=== PATIENT | male | born 1980 | race Caucasian/White ===

== ENCOUNTER → 2016-06-17 | Outpatient (CLI) | payer BC ==
--- NOTE | 2016-06-17 11:34 | CT ---
EXAMINATION TYPE: CT abdomen pelvis wo con DATE OF EXAM: 06/17/2016 11:13 AM COMPARISON: NONE INDICATION: LLQ pain for 3 days DLP: 897 mGycm, Automated exposure control for dose reduction was used. CONTRAST: 0 mL of Omnipaque 300. Study performed with Oral Contrast TECHNIQUE: Axial images were obtained from above the diaphragm to the pubic rami in the axial plane a t 5 mm thick sections. Reconstructed images are reviewed on the computer in the coronal plane. FINDINGS: Limited CT sections are obtained the lung bases. The lung bases are clear. CT ABDOMEN: Liver: Normal Spleen: Normal Pancreas: Normal Adrenal glands: The adrenal glands are normal. Gallbladder: Normal Kidneys: No masses are evident. No hydronephrosis is present. No cysts are present. No renal stone s are identified. Aorta: Normal Inferior vena cava: Normal. CT PELVIS: Loops of bowel within the abdomen and pelvis are normal. There are loops of bowel which are incom pletely distended or lack oral contrast limiting their evaluation. The descending colon sigmoid colon junction has mild thickening and adjacent inflammatory changes. This could be related to acute diver ticulitis. A single diverticulum is in this region. Colitis could be considered. Neoplasm is consider ed less likely but within the differential. A few diverticular changes are within the sigmoid colon. Appendix: Normal as visualized. Urinary bladder: Normal. Genitourinary structures: Prostate is unremarkable. Osseous structures: No suspicious lytic or sclerotic lesions. Sclerotic bone island is in the right m edial iliac wing. IMPRESSIONS: 1. Colitis versus acute diverticulitis sigmoid colon descending colon junction. Neoplasm is consider ed less likely. Follow-up is recommended.
== END | disposition home or self-care (01) ==
LOC: RADCTMAIN 09:34
PROVIDERS: ATTEND Physician Assistant
DX: R10.9 Unspecified abdominal pain (principal)
CPT/HCPCS: 74176

== ENCOUNTER 2016-11-16 11:36 | Day surgery (SDC) | payer BC ==
[2016-11-15 11:34] VITALS: BMI 25.0
[~2016-11-16 11:36] MED LIST: LACTATED RINGERS 1,000 ML IV SCH
[2016-11-16 12:39] VITALS: TEMP 97.6
[2016-11-16] MEDS ORDERED: LIDOCAINE 1% 20 ML VIAL (10MG/ML) FOR IV START INTRADERMA ONE (12:40)
[2016-11-16] MEDS ORDERED: PROPOFOL 10 MG/ML 20 ML VIAL IV ONE (13:05)
--- NOTE | 2016-11-16 13:21 | P.PCN ---
Date of Procedure: 11/16/16 Procedure(s) Performed: BRIEF HISTORY: Patient is a 36-year-old pleasant white male, scheduled for an elective colonoscopy as a part of evaluation of prior history of colon polyps. His last coloscopy was in 2010 and was noted to have a tubular villous adenoma in the sigmoid colon. Father was diagnosed with colon cancer at age 64. PROCEDURE PERFORMED: Colonoscopy with biopsy and snare polypectomy. PREOPERATIVE DIAGNOSIS: Screening for colon cancer/family history of colon cancer and history of colon polyps. IV sedation per Anesthesia. PROCEDURE: After informed consent was obtained, the patient, was brought into the endoscopy unit. IV sedation was administered by Anesthesia under continuous monitoring. Digital rectal examination was normal. Initially the Olympus CF- 160 flexible video colonoscope was then inserted in the rectum, gradually advanced into the cecum without any difficulty. Careful examination was performed as the scope was gradually being withdrawn. Ileocecal valve and the appendiceal orifice were visualized and appeared normal. Prep was excellent. Mucosa of the cecum, ascending colon, transverse colon appeared normal. In the descending colon there was a 1 cm polyp removed by snare polypectomy. There were patchy areas of erythema noted in the sigmoid colon and in the distal rectum was of which were biopsied. Retroflexion was performed in the rectum and no lesions were seen. The patient tolerated the procedure well. IMPRESSION: 1 cm descending colon polyp status post polypectomy Mild patchy areas of erythema noted in the sigmoid colon as well as in the distal rectum, status post biopsy RECOMMENDATIONS: Findings of this examination were discussed with the patient as well as his family. He was advised to follow with the biopsy results and have a repeat surveillance coloscopy in 3 years.
[2016-11-16 13:32] VITALS: RESP 14
[2016-11-16 13:38] VITALS: BP 111/77; PULSE 66
== END 2016-11-16 14:03 | disposition home or self-care (01) ==
LOC: ORWHC2ENDO 11:36
PROVIDERS: ATTEND Internal Medicine Gastroenterology
DX: Z12.11 Encounter for screening for malignant neoplasm of colon (principal); D12.4 Benign neoplasm of descending colon; K63.89 Other specified diseases of intestine; Z86.010 Personal history of colon polyps; Z80.0 Family history of malignant neoplasm of digestive organs; K21.9 Gastro-esophageal reflux disease without esophagitis; Z72.0 Tobacco use; Z79.899 Other long term (current) drug therapy
CPT/HCPCS: 88305; 45380; 45385; J2704

== ENCOUNTER → 2018-04-20 | Day surgery (SDC) | payer BC ==
[2018-04-18 10:08] VITALS: BMI 24.6
[~2018-04-20] MED LIST changes: +LIDOCAINE 1% 20 ML VIAL (10MG/ML) FOR IV START INTRADERMA ONE; +LIDOCAINE 1% 20 ML VIAL (10MG/ML) FOR IV START INTRADERMA PRN; +PROPOFOL 10 MG/ML 20 ML VIAL IV ONE
[2018-04-20 10:10] VITALS: RESP 16; TEMP 98
--- NOTE | 2018-04-20 11:12 | P.PCN ---
Date of Procedure: 04/20/18 Procedure(s) Performed: BRIEF HISTORY: Patient is a 36-year-old, pleasant, white male, scheduled for an upper endoscopy as a part of evaluation of epigastric pain on and off for the last 2 years duration. These episodes happens once or twice a week last all day. Has some associated abdominal bloating and epigastric discomfort. Denies any heartburn. In view of the symptoms he scheduled for an upper endoscopy to evaluate further. PROCEDURE PERFORMED: Esophagogastroduodenoscopy With the biopsy PREOPERATIVE DIAGNOSIS: Chronic epigastric pain of 2 years duration IV sedation per anesthesia. PROCEDURE: After informed consent was obtained, the patient was brought into the endoscopy unit. IV sedation was administered by Anesthesia under continuous monitoring. Initially the Olympus GIF-140 video endoscope was inserted into the mouth. Esophagus intubated without any difficulty. It was gradually advanced into the stomach and duodenum and carefully examined. The bulb and the second part of the duodenum appeared normal. The scope at this time was withdrawn to the stomach, adequately insufflated with air, and upon careful examination, mucosa of the antrum, had mild gastritis and biopsies were done from this area the body, cardia and the fundus appeared normal. The scope was then withdrawn into the esophagus. The GE junction was located at 39 cm from the incisors. The esophagus appeared normal. There were 2 superficial erosions at the GE junction consistent with LA grade a reflux esophagitis. The rest of the esophagus appeared normal and the patient tolerated the procedure well IMPRESSION: 1. Minimal antral gastritis 2. 2 superficial erosions at the GE junction consistent with LA grade A reflux esophageal RECOMMENDATIONS: The findings of this examination were discussed with the patient as well as his family. He was advised to follow with the biopsy results. He will continue with Zantac as needed and follow antireflux measures
[2018-04-20 11:22] VITALS: BP 116/77; PULSE 60
== END | disposition home or self-care (01) ==
LOC: ORWHC2ENDO 09:13
PROVIDERS: ATTEND Internal Medicine Gastroenterology
DX: K29.50 Unspecified chronic gastritis without bleeding (principal); K22.10 Ulcer of esophagus without bleeding; K21.9 Gastro-esophageal reflux disease without esophagitis; F17.210 Nicotine dependence, cigarettes, uncomplicated; Z86.010 Personal history of colon polyps; K58.9 Irritable bowel syndrome, unspecified; Z80.0 Family history of malignant neoplasm of digestive organs; Z79.899 Other long term (current) drug therapy
CPT/HCPCS: 88305; 43239; J2704

== ENCOUNTER 2023-07-06 07:44 | Day surgery (SDC) | payer BC, OTHER ==
[2023-06-30 14:45] VITALS: BMI 27.0
[2023-07-06] MEDS: LACTATED RINGERS 1,000 ML IV SCH (08:13)
[2023-07-06 08:19] VITALS: RESP 16; TEMP 97.6
--- NOTE | 2023-07-06 08:55 | P.GSHP ---
History of Present Illness H&P Date: 07/06/23 CHIEF COMPLAINT: Personal history of colon polyps and family history of colon cancer HISTORY OF PRESENT ILLNESS: The patient is a 42-year-old male who presents personal history of colon polyps and family history of colon cancer. Lower endoscopy was offered for further evaluation and management. PAST MEDICAL HISTORY: Please see list. PAST SURGICAL HISTORY: Please see list. MEDICATIONS: Please see list. ALLERGIES: Please see list. SOCIAL HISTORY: No illicit drug use FAMILY HISTORY: No reports of Crohn disease or ulcerative colitis. REVIEW OF ORGAN SYSTEMS: CONSTITUTIONAL: No reports of fevers or chills. PHYSICAL EXAM: VITAL SIGNS: Stable GENERAL: Well-developed pleasant in no acute distress. HEENT: No scleral icterus. Extraocular movements grossly intact. Moist buccal mucosa. NECK: Supple without lymphadenopathy. CHEST: Unlabored respirations. Equal bilateral excursions. CARDIOVASCULAR: Regular rate and rhythm. Distal 2+ pulses. ABDOMEN: Soft, nontender, nondistended. MUSCULOSKELETAL: No clubbing, cyanosis, or edema. ASSESSMENT: 1. Personal history of colon polyps 2. Family history of colon cancer 3. Colon screen. PLAN: 1. Recommend proceeding with a lower endoscopy Past Medical History Past Medical History: GERD/Reflux Additional Past Medical History / Comment(s): . History of Any Multi-Drug Resistant Organisms: None Reported Additional Past Surgical History / Comment(s): EGD/colonoscopy, hx polyps Past Anesthesia/Blood Transfusion Reactions: No Reported Reaction Additional Past Anesthesia/Blood Transfusion Reaction / Comment(s): no blood transfusion Past Psychological History: No Psychological Hx Reported Smoking Status: Current every day smoker Past Alcohol Use History: Rare Additional Past Alcohol Use History / Comment(s): started smoking at age 17,1 ppd Past Drug Use History: Marijuana Additional Drug Use History / Comment(s): INSTSTRUCTED TO REFRAIN FROM USE FOR AT LEAST 24 HOURS PROR TO PROCEDURE - Past Family History Mother Family Medical History: No Reported History Father Family Medical History: Cancer Additional Family Medical History / Comment(s): Stg 4 colon CA Medications and Allergies Home Medications Medication Instructions Recorded Confirmed Type No Known Home Medications 04/18/18 07/05/23 History Allergies Allergy/AdvReac Type Severity Reaction Status Date / Time No Known Allergies Allergy Verified 07/06/23 08:09 Surgical - Exam Vital Signs Temp Pulse Resp BP Pulse Ox 97.6 F 71 16 122/84 99 07/06/23 08:09 07/06/23 08:09 07/06/23 08:09 07/06/23 08:09 07/06/23 08:09
[2023-07-06] MEDS ORDERED: PROPOFOL 10 MG/ML 20 ML VIAL IV ONE (08:56)
[2023-07-06 09:53] VITALS: BP 109/76; PULSE 52
--- NOTE | 2023-07-06 10:13 | P.PCN ---
Date of Procedure: 07/06/23 Description of Procedure: PREOPERATIVE DIAGNOSIS: Personal history colon polyps Family history colon cancer, father History of blood in stools POSTOPERATIVE DIAGNOSIS: Acute diverticulitis, sigmoid colon OPERATION: Colonoscopy to the cecum, ileocecal valve and appendiceal orifice. SURGEON: Lilli Page MD. ANESTHESIA: MAC. INDICATIONS: The patient is a 42-year-old male who presents for colonoscopy screening. Past history of colon polyps. Benefits and risks were described and informed consent was obtained. DESCRIPTION OF PROCEDURE: The patient had undergone GoLytely prep prep. The patient had been brought into the operating room and laid in the left lateral decubitus position. After ad equate intravenous sedation, the rectum was examined with 2% lidocaine jelly. External hemorrhoids were encountered. The rectal tone was within normal limits. No lesions were palpated in the rectal vault. An Olympus colonoscope was advanced until the cecum, ileocecal valve and appendiceal orifice were clearly viewed. The prep was excellent. Scattered diverticulosis was encountered. Acute sigmoid diverticulitis was found without bleeding. No colonic polyps were found. Localized colitis identified the sigmoid colon. Retroflexion of the scope demonstrated grade 2 internal hemorrhoids without active bleeding or inflammation. The colon was desufflated. The patient had tolerated the procedure well. Withdrawal time was over 6 minutes. FINDINGS: Aronchick preparation quality scale 1 (1-5) Internal hemorrhoids, grade 2 External prolapsed hemorrhoids, grade 2 No arteriovenous malformations. No adenomatous polyps. Acute localized sigmoid diverticulitis without rupture, acute inflammation RECOMMENDATIONS: 1. Patient started immediately on antibiotics Augmentin 875 mg twice daily 2. Avoidance of foods that may contribute to diverticulitis advised. Plan - Discharge Summary Discharge Rx Participant: No New Discharge Prescriptions: New Amoxic-Pot Clav 875-125Mg [Augmentin Xr 875-125] 1 each PO Q12HR #20 tablet Discharge Medication List Amoxic-Pot Clav 875-125Mg [Augmentin Xr 875-125] 1 each PO Q12HR #20 tablet 07/06/23 [Rx] Follow up Appointment(s)/Referral(s): Lilli Page MD [STAFF PHYSICIAN] - 07/11/23 6:00 pm Patient Instructions/Handouts: Diverticulitis (GEN), Diverticulitis Diet (GEN) Activity/Diet/Wound Care/Special Instructions: Start antibiotic for diverticulitis Discharge Disposition: HOME SELF-CARE
== END 2023-07-06 10:12 | disposition home or self-care (01) ==
LOC: ORWHC2ENDO 07:44
PROVIDERS: ATTEND Surgery Plastic and Reconstructive Surgery
DX: Z12.11 Encounter for screening for malignant neoplasm of colon (principal); K57.30 Diverticulosis of large intestine without perforation or abscess without bleeding; K64.1 Second degree hemorrhoids; K21.9 Gastro-esophageal reflux disease without esophagitis; F17.200 Nicotine dependence, unspecified, uncomplicated; F10.90 Alcohol use, unspecified, uncomplicated; Z80.0 Family history of malignant neoplasm of digestive organs; F12.90 Cannabis use, unspecified, uncomplicated
CPT/HCPCS: 45378; J2704

== ENCOUNTER 2023-07-07 05:32 | Day surgery (SDC) | payer BC, OTHER ==
[2023-07-05 16:01] VITALS: BMI 26.9
[2023-07-07] MEDS ORDERED: ONDANSETRON 4 MG/2 ML VIAL IVP ONE (05:48)
[2023-07-07] MEDS ORDERED: LACTATED RINGERS 1,000 ML IV SCH (05:48)
[2023-07-07] MEDS: LACTATED RINGERS 1,000 ML IV ONE ×3 (06:00→08:55)
--- NOTE | 2023-07-07 06:13 | P.GSHP ---
History of Present Illness H&P Date: 07/07/23 CHIEF COMPLAINT: Inguinal hernia, right. HISTORY OF PRESENT ILLNESS: The patient is a 42-year-old male who presents with a history of swelling and pain along the right groin. He's noted increased swelling including pain of the area. Now he presents for repair of his inguinal hernia. PAST MEDICAL HISTORY: Please see list. PAST SURGICAL HISTORY: Please see list. MEDICATIONS: Please see list. ALLERGIES: Please see list. SOCIAL HISTORY: No illicit drug use FAMILY HISTORY: No reports of Crohn disease or ulcerative colitis. REVIEW OF ORGAN SYSTEMS: CONSTITUTIONAL: No reports of fevers or chills. No reports of weight loss despite prior attempts. GI: Denies any blood in stools or constipation. PHYSICAL EXAM: VITAL SIGNS: Stable GENERAL: Well-developed pleasant male in no acute distress. HEENT: No scleral icterus. Extraocular movements grossly intact. Moist buccal mucosa. NECK: Supple without lymphadenopathy. CHEST: Unlabored respirations. Equal bilateral excursions. CARDIOVASCULAR: Regular rate and rhythm. Distal 2+ pulses. ABDOMEN: Soft, nondistended. No peritoneal signs. Palpable defect of the right groin. MUSCULOSKELETAL: No clubbing, cyanosis, or edema. ASSESSMENT: 1. Inguinal hernia, right PLAN: 1. Recommend proceeding with a robotic inguinal repair with mesh with possible bilateral approach. 2. Benefits and risks of surgical intervention was discussed including possibility of open technique. 3. DVT prophylaxis. 4. Antibiotic prophylaxis. 5. Non narcotic pain management including abdominal wall block described 6. Blood sugar glucose described. 7. Weight loss management described. 8. CBC, CMP, and EKG on day of procedure. Past Medical History Past Medical History: GERD/Reflux Additional Past Medical History / Comment(s): . History of Any Multi-Drug Resistant Organisms: None Reported Additional Past Surgical History / Comment(s): EGD/colonoscopy, hx polyps Past Anesthesia/Blood Transfusion Reactions: No Reported Reaction Past Psychological History: No Psychological Hx Reported Smoking Status: Current every day smoker Past Alcohol Use History: Rare Additional Past Alcohol Use History / Comment(s): started smoking at age 17,1 ppd Past Drug Use History: Marijuana Additional Drug Use History / Comment(s): INSTSTRUCTED TO REFRAIN FROM USE FOR AT LEAST 24 HOURS PROR TO PROCEDURE - Past Family History Mother Family Medical History: No Reported History Father Family Medical History: Cancer Additional Family Medical History / Comment(s): Stg 4 colon CA Medications and Allergies Home Medications Medication Instructions Recorded Confirmed Type Amoxic-Pot Clav 875-125Mg 1 each PO Q12HR #20 tablet 07/06/23 07/07/23 Rx [Augmentin Xr 875-125] Allergies Allergy/AdvReac Type Severity Reaction Status Date / Time No Known Allergies Allergy Verified 07/07/23 06:04
[2023-07-07] MEDS: MELOXICAM 7.5 MG TAB PO PRN (06:38)
[2023-07-07] MEDS: ACETAMINOPHEN TAB 500 MG TAB PO PRN (06:38)
[2023-07-07] MEDS: DEXAMETHASONE SOD PHOSPHATE 4 MG/ML 1 ML VIAL IV ONE (06:39)
[2023-07-07] MEDS: ONDANSETRON 4 MG/2 ML VIAL IVP PRN (06:39)
[2023-07-07 06:49] LABS: Basophils # (A) 0.1 k/uL (0-0.2); Basophils % (A) 1 %; Eosinophils # (A) 0.5 k/uL (0-0.7); Eosinophils % (A) 6 %; HGB 14.9 gm/dL (13.0-17.5); Lymphocytes # (A) 1.6 k/uL (1.0-4.8); Lymphocytes % (A) 20 %; MCH 29.2 pg (25.0-35.0); MCV 88.2 fL (80.0-100.0); Monocytes # (A) 0.4 k/uL (0-1.0); Monocytes % (A) 5 %; Neutrophils # (A) 5.4 k/uL (1.3-7.7); Neutrophils % (A) 67 %; Platelet Count 276 k/uL (150-450); RDW 13.1 % (11.5-15.5)
[2023-07-07] MEDS: MIDAZOLAM 2 MG/2 ML VIAL IVP ONE (06:52)
[2023-07-07 07:00] LABS: ALT 22 U/L (4-49); AST 22 U/L (17-59); African American GFR (CKD) >90 (>60 ml/min/1.73 sqM); Albumin 4.2 g/dL (3.5-5.0); Alkaline Phosphatase 73 U/L (38-126); Anion Gap 7 mmol/L; Blood Urea Nitrogen 14 mg/dL (9-20); Calcium 9.1 mg/dL (8.4-10.2); Carbon Dioxide 21 mmol/L (22-30); Chloride 111 mmol/L (98-107); Glucose 95 mg/dL (74-99); Non-African American GFR(CKD) >90 (>60 ml/min/1.73 sqM); Potassium 4.2 mmol/L (3.5-5.1); Sodium 139 mmol/L (137-145); Total Bilirubin 0.4 mg/dL (0.2-1.3); Total Protein 6.8 g/dL (6.3-8.2)
[2023-07-07] MEDS ORDERED: HYDROmorphone 0.5 MG/0.5 ML SYRINGE IVP PRN (07:00)
[2023-07-07] MEDS: TAMSULOSIN 0.4 MG CAP.ER.24H PO STA (07:17)
[2023-07-07] MEDS: HEPARIN SODIUM,PORCINE 5,000 UNIT/ML 1 ML VIAL SQ PRN (07:17)
[2023-07-07] MEDS ORDERED: ROPIVACAINE 5 MG/ML 30 ML VIAL ONE (07:29)
[2023-07-07] MEDS ORDERED: HYDROmorphone (PF) 1 MG/ML ONE (07:29)
[2023-07-07] MEDS ORDERED: ROCURONIUM 10 MG/ML (5 ML VIAL) IV ONE (07:29)
[2023-07-07] MEDS ORDERED: fentaNYL (PF) 50 MCG/ML 2 ML AMP ONE (07:29)
[2023-07-07] MEDS ORDERED: NEOSTIGMINE 1 MG/ML 10 ML VIAL ONE (07:29)
[2023-07-07] MEDS ORDERED: PROPOFOL 10 MG/ML 20 ML VIAL IV ONE (07:29)
[2023-07-07] MEDS ORDERED: LIDOCAINE 1% INJ 10MG/ML (20 ML MDV) ONE (07:29)
[2023-07-07] MEDS ORDERED: GLYCOPYRROLATE 0.2 MG/ML 2 ML VIAL ONE (07:29)
[2023-07-07] MEDS ORDERED: SODIUM CHLORIDE 0.9% (PF) 10 ML VIAL ONE (07:29)
[2023-07-07] MEDS: LIDOCAINE 1%-EPI 1:100,000 20 ML VIAL SQ ONE (07:53)
--- NOTE | 2023-07-07 08:37 | P.ANPRN ---
Procedure Note - Anesthesia - Nerve Block Performed Bilateral Transversus Abdominis Single Time Out Performed: Yes (0651) Date of Procedure: 07/07/23 Procedure Start Time: 06:54 Procedure Stop Time: 07:00 Location of Patient: PreOp Indication: Acute Post-Operative Pain, Requested by Surgeon Sedation Type: Sedate with meaningful contact maintained Preparation: Sterile Prep, Sterile Dressing Position: Supine Catheter: None Needle Types: Pajunk Needle Gauge: 21 Ultrasound used to visualize needle placement: Yes Ultrasound used to observe medication spread: Yes Injectate: 0.5% Ropivacaine (see comment for volume) (On each side of the block , 20 mL of block solution containing 10 ML of 0.5% ropivacaine mixed with 10 ML of preservative-free normal saline) Blood Aspirated: No Pain Paresthesia on Injection Noted: No Resistance on Injection: Normal Image Stored and Saved: Yes Events: Uneventful and Well Tolerated
--- NOTE | 2023-07-07 09:07 | P.OP ---
Date of Procedure: 07/07/23 Description of Procedure: SURGEON: LILLI PAGE MD PREOPERATIVE DIAGNOSES: 1. Initial right inguinal hernia. 2. Diverticulitis POSTOPERATIVE DIAGNOSES: 1. Initial right inguinal hernia, indirect 2. Diverticulitis 3. Subfascial right inguinal lipoma, 2 x 4 cm OPERATION: 1. Robotic-assisted da [place] Xi laparoscopic right inguinal hernia repair with mesh, 11.[address] 2. Excision of subfascial right inguinal lipoma, 2 x 4 cm ANESTHESIA: General with local anesthetic ESTIMATED BLOOD LOSS: 5 mL. SPECIMENS REMOVED: Right inguinal hernia lipoma COMPLICATIONS: None. FINDINGS: 1. Nyhus type II indirect inguinal hernia, reducible, initial, 2 cm 2. Non-absorbable 2-0 VLOC used 3. Subfascial right inguinal lipoma, 2 x 4 cm INDICATIONS: The patient is a 42-year-old gentleman who presents with initial right groin pain. Now presents for definitive surgical intervention. Lap aroscopic versus open and robotic approaches were discussed. Benefits and risks including bleeding, infection, injury to the vas deferens as well as sterility and chronic groin pain were reviewed. Placement of mesh was also described. Informed consent was obtained. DESCRIPTION: In the preoperative area, the patient was marked with indelible marker along the inguinal hernia. The patient was brought to the operating room and initially laid in supine position. The abdomen had been prepped and draped in standard sterile fashion. Ioban draping was also placed. Prior to incision, a timeout protocol was confirmed with surgical team regarding patient's name including procedures to be performed and location along the right groin. Initial positioning for the robotic assisted ports were selected whereby 20 cm superior to the target anatomy, 0 degree 5 mm laparoscopic trocar entry was performed at the left upper quadrant. The abdomen was insufflated to 15 mmHg which he had tolerated well. Diagnostic laparoscopy demonstrated a indirect inguinal hernia along the right groin. Next, along the epigastrium, 8 mm robot trocar was placed. An 8-mm robotic trocar was placed under direct visualization at the right upper quadrant. An 8 mm port was placed at the left upper quadrant. All trocars were positioned between 8 to 10-cm apart from each other. An accessory trocar was placed on the right lateral abdominal wall 12 mm. The [employer] Sellvana XI robot was primed, draped, prepared for docking along the right side of the patient. The patient was placed in Trendelenberg position 14-degrees. I then went to the [address] console. The parking assistant was at bedside for exchange of the robot arms and equipment. No hernia was identified along the left groin. The right inguinal hernia sac was evaginated whereby the peritoneum was scored using Endo scissors with cautery. Once completely reduced into the abdominal cavity, the peritoneal sac of the hernia was stripped along an indirect inguinal hernia and a subfascial inguinal lipoma, 2 x 4-cm and sac was resected and then passed off for further pathological analysis. The size of the hernia defect was 2 cm with intraoperative films obtained. Using a 2-0 VLOC, the peritoneal defect of the right inguinal hernia site was closed using a pursestring suture. The defect was found to be completely closed with complete reduction of the right direct inguinal hernia was confirmed. As an onlay, an 11.[address] mesh by [employer] App was initially cut in half and entered into the abdominal cavity via the 8 mm trocar. The mesh was tacked to the pelvis using 2-0 VLOC 9-inch length sutures. The robot was undocked from the patient's bedside. I then rescrubbed into the case. Insufflation was released from the abdominal cavity and all instruments were removed from the abdominal cavity. The rest of incisions were reapproximated using 4-0 Monocryl in a running subcuticular fashion. Incisions were cleansed using dilute hydrogen peroxide. Liquid glue was applied to the skin. At the end of the procedure, the needle, sponge and instrument counts had been verified correct by the eligibility technician. The patient had tolerated the procedure well and was taken to the postanesthesia care unit in stable condition. Plan - Discharge Summary Discharge Rx Participant: No New Discharge Prescriptions: New Ibuprofen [Motrin] 600 mg PO Q8HR PRN #30 tab PRN Reason: Pain Acetaminophen Tab [Tylenol Tab] 1,000 mg PO Q6HR PRN #30 tablet PRN Reason: Pain Amoxic-Pot Clav 875-125Mg [Augmentin 875-125] 1 each PO Q12HR #20 tab Simethicone [Gas-X] 125 mg PO AC-TID PRN #20 capsule PRN Reason: Pain Discontinued Amoxic-Pot Clav 875-125Mg [Augmentin Xr 875-125] 1 each PO Q12HR #20 tablet Discharge Medication List Acetaminophen Tab [Tylenol Tab] 1,000 mg PO Q6HR PRN #30 tablet 07/07/23 [Rx] Amoxic-Pot Clav 875-125Mg [Augmentin 875-125] 1 each PO Q12HR #20 tab 07/07/23 [Rx] Ibuprofen [Motrin] 600 mg PO Q8HR PRN #30 tab 07/07/23 [Rx] Simethicone [Gas-X] 125 mg PO AC-TID PRN #20 capsule 07/07/23 [Rx] Follow up Appointment(s)/Referral(s): Lilli Page MD [STAFF PHYSICIAN] - 07/11/23 6:30 pm (TELEHEALTH) Patient Instructions/Handouts: Laparoscopic Herniorrhaphy (IP) Activity/Diet/Wound Care/Special Instructions: TELEHEALTH - DR WILL CALL YOU BETWEEN 9 am to 8 pm No lifting over 10 pounds in 2 weeks until July 20June shower. No bath tub soaks for two weeks until July 20 Diet as tolerated. Use Tylenol, simethicone and ibuprofen or Aleve scheduled for the next 24-48 hours for best pain relief. Use ice along incisions for today to prevent swelling. Discharge Disposition: HOME SELF-CARE
[2023-07-07 09:11] VITALS: TEMP 97.4
[2023-07-07 09:57] VITALS: BP 118/79; PULSE 68; RESP 16
== END 2023-07-07 10:24 | disposition home or self-care (01) ==
LOC: OR 05:32
PROVIDERS: ATTEND Surgery Plastic and Reconstructive Surgery
DX: K40.90 Unilateral inguinal hernia, without obstruction or gangrene, not specified as recurrent (principal); K57.30 Diverticulosis of large intestine without perforation or abscess without bleeding; K21.9 Gastro-esophageal reflux disease without esophagitis; F17.210 Nicotine dependence, cigarettes, uncomplicated; F10.90 Alcohol use, unspecified, uncomplicated; F12.90 Cannabis use, unspecified, uncomplicated; Z80.0 Family history of malignant neoplasm of digestive organs; Z79.899 Other long term (current) drug therapy
CPT/HCPCS: 64488; 88304; 80053; 85025; 49650; C1781; J2250; J1644; J1100; J2710; J0690; J2405; J2001; J3010; J1170; J2795; J2704